=== PATIENT | male | born 1990 | race Caucasian/White ===

== ENCOUNTER 2016-11-03 19:49 | Emergency (ER) | payer OTHER ==
[2016-11-03 23:00] LABS: Hematocrit 44.6 % (42.0-52.0); Hemoglobin 16.3 gm/dL (13.5-18.0); Mean Cell Volume 85.3 fl (78-100); Mean Corpuscular Hemoglobin 31.2 pg (27-31); Mean Corpuscular Hgb Conc 36.5 g/dl (32-36); Mean Platelet Volume 8.9 fl (6.0-9.5); Neutrophil # 3.8 K/mm3 (1.3-6.0); Neutrophil % 47.1 % (42-75.0); Platelet Count 178 K/mm3 (150-450); Red Blood Count 5.23 M/mm3 (4.7-6.0); Red Cell Distribution Width 11.6 % (11.5-14.0); White Blood Count 8.2 K/mm3 (4.0-10.5)
[2016-11-03 23:15] LABS: ALT 35 U/L (19-67); AST 47 U/L (0-48); Albumin * 4.4 gm/dl (3.4-5.0); Alkaline Phosphatase * 85 U/L (50-170); Anion Gap 16.2 mmol/L (6.8-13.8); BUN/Creatinine Ratio 16.1 (9.0-21.6); Bilirubin, Total 1.1 mg/dL (0.0-1.1); Blood Urea Nitrogen 14 mg/dL (6-23); Ca. Corrected For Albumin 8.6 mg/dL (8.4-10.2); Calcium * 9.2 mg/dL (7.9-10.9); Carbon Dioxide 29.2 mmol/L (24-32.6); Chloride 95 mmol/L (97-106); Glucose * 112 mg/dL (70-110); Lipase 103 U/L (73-393); Magnesium 1.9 mg/dL (1.2-2.8); Potassium 3.4 mmol/L (3.4-4.6); Salicylate 3.4 mg/dL (2.8-20.0); Sodium 137 mmol/L (132-142); Total Protein 7.9 gm/dL (6.2-8.2)
[2016-11-03 23:17] LABS: Urine Bilirubin Negative (NEGATIVE); Urine Ketone Negative (NEGATIVE); Urine Nitrite Negative (NEGATIVE); Urine Protein 15 mg/dL (NEGATIVE); Urine Urobilinogen Normal (NORMAL); Urine pH 6.5 pH (5.0-7.0)
[2016-11-03 23:25] LABS: Urine Appearance Clear; Urine Bacteria None Seen; Urine Blood 10 /ul (NEGATIVE); Urine Color Yellow; Urine RBC None Seen /hpf (0-5); Urine WBC None Seen /hpf (0-5)
[2016-11-03 23:29] LABS: Cocaine Ur Negative (NEGATIVE); Urine Barbiturate Negative (NEGATIVE); Urine Benzodiazepines Negative (NEGATIVE); Urine Opiates Negative (NEGATIVE); Urine PCP Negative (NEGATIVE)
[2016-11-03 23:30] LABS: Urine THC Positive (NEGATIVE)
[2016-11-03] MEDS ORDERED: LORazepam 2 MG/ML DISP.SYRIN IV ONE (23:36)
[2016-11-03] MEDS ORDERED: LORazepam 2 MG/ML DISP.SYRIN ONE (23:53)
[2016-11-03] MEDS: NORMAL SALINE 1,000 ML IV ONE (23:57)
[2016-11-04] MEDS ORDERED: KETOROLAC TROMETHAMINE 30 MG/ML VIAL IV ONE (01:14)
[2016-11-04] MEDS ORDERED: KETOROLAC TROMETHAMINE 30 MG/ML VIAL ONE (01:16)
[2016-11-04] MEDS ORDERED: NORMAL SALINE 1,000 ML IV ONE (01:27)
[2016-11-04] MEDS ORDERED: LORazepam 2 MG/ML DISP.SYRIN IV ONE ×4 (01:36→07:26)
[2016-11-04] MEDS ORDERED: LORazepam 2 MG/ML DISP.SYRIN ONE ×4 (01:37→07:40)
[2016-11-04] MEDS ORDERED: NORMAL SALINE 1,000 ML IV PRN (03:29)
[2016-11-04] MEDS: NORMAL SALINE 1,000 ML IV ONE (03:48)
--- NOTE | 2016-11-04 05:08 | ERNOTE ---
Psychological HPI - Date Date of Service: 11/03/16 - General Chief Complaint: Psychiatric Problem Source: patient Exam Limitations: no limitations - Immun/Allergies/Home Medications Allergies/Adverse Reactions: Allergies paliperidone [From Invega] Allergy (Verified 01/23/16 18:47) Home Medications: HOME MEDICATIONS Lisinopril [Zestril] 10 mg PO HS #30 tablet 01/27/16 [Last Taken Unknown] Omeprazole [Prilosec] 20 mg PO DAILY #30 cap 01/27/16 [Last Taken Unknown] Ondansetron HCl [Zofran] 4 mg PO Q4H #10 tablet 11/04/16 [Last Taken Unknown] Pantoprazole Sodium [Protonix] 20 mg PO DAILY #20 tablet. 11/04/16 [Last Taken Unknown] - History of Present Illness Narrative: 26 year old that has been drinking 1/5th of vodka daily for about 3-4 years, and is feeling suicidal. These feelings of being suicidal have been ongoing, and today is no different from the other days. He is unsure of how he would commit suicide, but would consider the continuance of drinking ETOH. He also admits to smoking marijuana, but denies other street drug use. No complaints of shortness of breath, but does complaint of abdominal pain. The abdominal pain is similar to other pain that he has had due to pancreatitis. Rodrigo has been to rehabilitation and AA. Time Seen by Provider: 11/03/16 23:10 Arrived by: private car Onset/duration: sudden onset Intent: prior thoughts of suicide Mechanism: other - ETOH Situational Problems: other - substance abuse Associated Symptoms: depressed Review of Systems - Review of Systems Constitutional: Present: See HPI EYE: Present: see HPI ENT: Present: See HPI Respiratory: Present: no symptoms reported Cardiology: Present: no symptoms reported Gastrointestinal/Abdominal: Present: See HPI Genitourinary: Present: no symptoms reported Musculoskeletal: Present: no symptoms reported Skin: Present: no symptoms reported Neurological: Present: no symptoms reported Endocrine: Present: no symptoms reported Hematologic/Lymphatic: Present: no symptoms reported Psych: Present: no symptoms reported - Patient's Past Medical History Patient History - Medical: Alcohol Abuse, Anxiety, Depression, Seizures Patient History - Cardiac/Respiratory: Hypertension Patient History - Cancer: No Hx of Cancer Patient History - Surgical Procedures: No surgical history Patient History - Other: None - Family History Mother Family History - Medical: Depression, Fibromyalgia Family History - Cardiac/Respiratory: No pertinent hx Father Family History - Medical: Hypothyroidism, Seizures Family History - Cancer: Brain - Social History Living Situations: home Smoking Status: Current every day smoker Have you smoked in the past 12 months: Yes Do you dip or chew tobacco: No Patient requests Smoking Cessation Consult: No Initiate information on Smoking Cessation: No Alcohol Use: heavy Drug Use: marijuana - Immunizations Immunizations Up to Date: Yes Hx Pneumococcal Vaccination: No History of Influenza Vaccine: No Physical Exam - Physical Exam General Appearance: Present: no apparent distress, other - ointoxicated Eye Exam: Normal inspection: bilateral Ears, Nose, Throat: Present: normal ENT inspection, hearing grossly normal, other - Mild exopthalmos bilaterally Neck: Present: normal inspection, supple, full range of motion Respiratory: Present: no respiratory distress, normal breath sounds Cardiovascular/Chest: Present: regular rate, rhythm, no murmur, normal peripheral pulses Gastrointestinal/Abdominal: Present: nontender Back Exam: Present: normal inspection Extremity Exam: Present: normal inspection Neurological Exam: Present: alert, oriented, normal mood/affect, 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 - Vital Signs Patient's Vital Signs:: I have reviewed the patient's vital signs. Vital Signs: Vital Signs 11/04/16 11/04/16 00:54 03:18 Temperature 36.2 C L 36.1 C L Pulse Rate 138 H 93 Respiratory 20 14 Rate Blood Pressure 168/105 122/68 O2 Sat by Pulse 97 97 Oximetry - Progress/Reassessment Chief Complaint: Psychiatric Problem Progress:: Improved Progress Note-Subjective: 11/04/16 07:24 Continues to exhibit signs of withdrawl. No longer feels suicidal. He was given the option of seeking rehabilitation but does not know if he would like to pursue it? He is trying to decide if he would like to stop drinking. His ex girlfriend (a nurse) is with him and agrees with the strategy. 11/04/16 07:41 The patient was given the option several times to go home or to seek rehabilitation. He has opted to go home and is not interested rehab. 11/04/16 07:53 Continues to deny suicidal ideations. He is not interested in going to rehab. Departure Clinical Impression: ETOH abuse, Withdrawal symptoms, alcohol - Departure Disposition: Home self-care Condition: Fair Instructions: Alcohol Use Disorder, Alcohol Abuse and Nutrition Print Language: Turkmen Additional Instructions: If you feel unsafe return to the ED. Contact AA to try to get a sponsor. Prescriptions: Ondansetron HCl [Zofran] 4 mg PO Q4H #10 tablet Pantoprazole Sodium [Protonix] 20 mg PO DAILY #20 tablet.
[2016-11-04] MEDS ORDERED: PANTOPRAZOLE SODIUM 40 MG TABLET.EC PO ONE (07:21)
[2016-11-04] MEDS ORDERED: MAG HYDROX/ALUMINUM HYD/SIMETH 30 ML UDC PO ONE (07:22)
[2016-11-04] MEDS ORDERED: LIDOCAINE HCL 20 ML UDC PO ONE (07:22)
[2016-11-04] MEDS ORDERED: BELLADONNA ALKALOIDS/PHENOBARB 60 ML BTL PO ONE (07:22)
[2016-11-04] MEDS ORDERED: ONDANSETRON 4 MG TAB.RAPDIS PO ONE (07:27)
[2016-11-04] MEDS ORDERED: PANTOPRAZOLE SODIUM 40 MG TABLET.EC ONE (07:28)
[2016-11-04] MEDS ORDERED: ONDANSETRON 4 MG TAB.RAPDIS ONE (07:30)
[2016-11-04 07:57] VITALS: BP 159/91
== END 2016-11-04 08:04 | disposition home or self-care (01) ==
LOC: ER 19:49
DX: F10.239 Alcohol dependence with withdrawal, unspecified (principal); F17.210 Nicotine dependence, cigarettes, uncomplicated; R10.9 Unspecified abdominal pain
CPT/HCPCS: 36415; 80053; 81001; 82272; 83690; 83735; 85025; 96374; 96375; 99284; G0479; G0480; G0481